=== PATIENT | female | born 1930 | race Caucasian/White ===

== ENCOUNTER → 2016-09-20 | Outpatient (CLI) | payer MEDICARE ==
[~2016-09-20] MED LIST: AMIO200 PO; APIX2.5T PO; BUME1TAB PO; CARV12.5 PO; CLON.1 PO; SIMV20 PO; SPIR25 PO
--- NOTE | 2016-09-20 10:36 | RADRPT ---
EXAM DATE/TIME: 09/20/2016 10:24 [place] COMPARISON: CHEST SINGLE AP, September 15, 2015, 19:04. INDICATIONS : Shortness of breath. MEDICAL HISTORY : None. SURGICAL HISTORY : Pacemaker. ENCOUNTER: Initial ACUITY: 1 day PAIN SCORE: 0/10 LOCATION: Bilateral chest FINDINGS: PA and lateral views of the chest demonstrate the lungs to be symmetrically aerated without evidence of mass, infiltrate or effusion. Atherosclerotic changes are again noted in the aorta. There has bee n interval placement of a left subclavian venous sequential transvenous pacer with defibrillator lead . The heart size is mildly prominent with no perihilar edema. The bony thorax is intact. CONCLUSION: 1. No acute cardiopulmonary disease. 2. Mild cardiomegaly with no evidence of perihilar edema. 3. No placement of left subclavian transvenous pacer. Percy Pavon MD on September 20, 2016 at 10:33 Board Certified Radiologist. This report was verified electronically.
[2016-09-20 11:28] LABS: BLOOD GAS BASE EXCESS -1.2 mmol/L (-2-2); BLOOD GAS CARBOXYHEMOGLOBIN 1.4 % (0-4); BLOOD GAS HCO3 23 mmol/L (22-26); BLOOD GAS METHEMOGLOBIN 0.9 % (0-2); BLOOD GAS O2 HGB SATURATION 96 % (90-100); BLOOD GAS OXYGEN CONTENT 14.9 Vol % (12.0-20.0); BLOOD GAS PCO2 37 mmHg (38-42); BLOOD GAS PO2 97 mmHg (61-120); CRITICAL VALUE NO; TEMP CORR TO 98.6
[2016-09-20 11:29] LABS: DRAW SITE RT RADIAL; FIO2 21 %; NUMBER OF ARTERIAL PUNCTURES 1; STAT NO; ULNAR PULSE PRESENT
== END ==
LOC: HRAD 10:04
PROVIDERS: ATTEND Internal Medicine Sleep Medicine
DX: R06.09 Other forms of dyspnea (principal)
CPT/HCPCS: 36600; 71020; 82805